=== PATIENT | male | born 1935 | race Caucasian/White ===

== ENCOUNTER → 2018-03-29 07:14 | Outpatient (CLI) | payer MEDICARE, SELFPAY ==
--- NOTE | 2018-03-29 07:19 | XR_ITS ---
XR chest 2V HISTORY: ITS.REASON: dyspnea Dyspnea ORDERING PHYSICIAN: Alexandro Whitley MD PATIENT AGE: 82 years Technique: PA and lateral chest COMPARISON: 10/22/2014 CXR FINDINGS: There is bibasilar atelectasis along with minimal basilar scarring evident. This yields Mild accentuation markings toward the bases. This is very similar previous chest film from 10/22/2014 Upper lung scott are mildly hyperexpanded and clear likely underlying mild COPD changes Heart normal size The cardiomediastinal silhouette and pulmonary vascularity are within normal limits. Calcified nodes again seen adjacent to the right bronchus granuloma disease. The lungs are clear without infiltrates, suspicious nodules, or pleural effusions. No acute bony abnormalities. IMPRESSION: Stable chest nothing definitely acute Chronic changes. . Findings are atelectasis and scarring
--- NOTE | 2018-03-29 07:19 | NM_ITS ---
History and Indications: History of OH, chest pain, abnormal EKG, Procedure: Patient received a 0.4 mg of Lexiscan, resting heart rate was 93 beats prominent, resting blood pressure 130/64, with Lexiscan maximum heart rate achieved was 78 bpm which is less than 85% of the maximum predicted heart rate and a blood pressure was 134/70. Electrocardiogram: Resting electrocardiogram showed sinus rhythm, right bundle branch block, with Lexiscan there is less than 1.[address] segment depression noted from the baseline EKG. The EKG portion of the Lexiscan Myoview is nondiagnostic. Cardiac stress and resting SPECT images: Cardiac stress and rest SPECT images were obtained using technetium 99 Myoview 30.9 mCi at stress and 10.3 mCi at rest. Gated SPECT further analysis of segmental wall motion and calculation of the ejection fraction also done. Cardiac stress and rest SPECT images show uniform myocardial activity without any segmental perfusion abnormality, computer derived ejection fraction is over 65% with no obvious regional wall motion abnormality, right ventricle is normal size and contractility. Conclusion: 1. The EKG portion of the Lexiscan Myoview is nondiagnostic. 2. No obvious scintigraphic evidence of reversible ischemia seen, computer derived ejection fraction is over 65% with no obvious regional wall motion abnormality, right ventricle is normal size and contractility. 3. Normal Lexiscan Myoview study.
--- NOTE | 2018-03-29 07:19 | CA_ITS ---
PROCEDURE: 2-D M-mode and color Doppler study INDICATIONS FOR THE TEST: Chest painx COPD Heart Murmur Tobacco Smoking Palpitations Fatiguex Syncope Edemax Hypertension Diabetes Mellitus Rheumatic Fever SOBxDOE Obesity Hyperlipidemia Family History HD Additional History CAD PATIENT INFORMATION HEIGHT: 6'4'' WEIGHT: 262 GENDER: Male B/P: 135/61 2-D/M-MODE INTERPRETATION: 2-D MEASUREMENTS OBSERVED VALUES IN CMS Right Ventricular Dimension (RVDd) 2.6 Interventricular Septum (Thickness)(IVsd) 1.1 Left Ventricular Internal Dimensions(LVIDd) 4.4 Left Ventricular Posterior Wall (Thickness)(LVPWd) 1.1 Aortic Root 3.2 Aortic Cusp Separation 1.8 Left Atrial Dimensions (LAD) 4.4 2D 1. Left atrium is mildly enlarged, left ventricle is normal size, mild concentric left ventricular hypertrophy, visually estimated ejection fraction 55% with no obvious regional wall motion abnormality. 2. The right atrium and right ventricle are normal size and contractility. 3. The aortic valve is minimally thickened and fibrosed. 4. The mitral and tricuspid valve leaflets are minimally thickened. 5. The pulmonic valve is poorly visualized. 6. No significant pericardial effusion noted. DOPPLER INTERROGATION: Doppler interrogation of the aortic, mitral and tricuspid valvular presence of trace aortic, mild mitral and tricuspid regurgitation, tricuspid regurgitant jet velocity is insufficient for calculation of the right ventricular systolic pressure, grade 1 diastolic dysfunction seen without tissue Doppler evidence of raised left atrial pressure. CONCLUSION: 1.Mildly enlarged left atrium, normal left ventricular size, mild concentric left ventricular hypertrophy, visually estimated ejection fraction 55% with no obvious regional wall motion abnormality, grade 1 diastolic dysfunction seen without tissue Doppler evidence of raised left atrial pressure. 2. Trace aortic, mild mitral and tricuspid regurgitation 3. No significant pericardial effusion noted.
--- NOTE | 2018-03-29 09:46 | HMH.ITSHM ---
cetirizine isosorbide asa hydrocodone
== END ==
PROVIDERS: Family Provider Internal Medicine; PCP Internal Medicine; Visit Provider Internal Medicine
DX: I25.118 Atherosclerotic heart disease of native coronary artery with other forms of angina pectoris (principal); R06.02 Shortness of breath; R42 Dizziness and giddiness; R94.31 Abnormal electrocardiogram [ECG] [EKG]; R00.2 Palpitations; I20.9 Angina pectoris, unspecified
CPT/HCPCS: 71046; 78452; 93017; 93306; A9502; J2785

== ENCOUNTER 2018-05-04 13:38 | Outpatient (RCR) | payer MEDICARE, OTHER, SELFPAY | END 2018-05-07 13:39 | disposition home or self-care (01) | LOC: PT 13:38 | PROVIDERS: Family Provider Internal Medicine; PCP Internal Medicine Adolescent Medicine; Visit Provider Internal Medicine Cardiovascular Disease | DX: Z95.5 Presence of coronary angioplasty implant and graft (principal); I25.10 Atherosclerotic heart disease of native coronary artery without angina pectoris; E78.5 Hyperlipidemia, unspecified | CPT/HCPCS: 93798 ==

== ENCOUNTER → 2018-08-31 10:34 | Outpatient (CLI) | payer MEDICARE, OTHER, SELFPAY ==
[2018-08-31 12:35] LABS: Alanine Aminotransferase 43 U/L (12-78); Albumin Level 3.8 gm/dL (3.4-5.0); Alkaline Phosphatase 62 U/L (46-116); Aspartate Amino Transferase 24 U/L (15-37); Bilirubin,Direct 0.1 mg/dL (0.0-0.2); Bilirubin,Indirect 0.4 mg/dL (0.0-0.9); Bilirubin,Total 0.5 mg/dL (0.2-1.0); Chol/HDL Ratio 3.9 (1-3.5); Cholesterol 140 mg/dL (140-200); HDL Cholesterol 36 mg/dL (27-67); LDL Cholesterol 79 mg/dL (0-130); Total Protein,Serum 6.9 gm/dL (6.4-8.2); Triglycerides 126 mg/dL (30-200); VLDL Cholesterol 25 mg/dL (0-40)
== END ==
PROVIDERS: Visit Provider Internal Medicine Cardiovascular Disease
DX: I25.118 Atherosclerotic heart disease of native coronary artery with other forms of angina pectoris; E78.49 Other hyperlipidemia
CPT/HCPCS: 36415; 80061; 80076

== ENCOUNTER → 2018-09-18 12:42 | Outpatient (CLI) | payer MEDICARE, OTHER, SELFPAY | PROVIDERS: Visit Provider Internal Medicine Cardiovascular Disease | DX: G47.9 Sleep disorder, unspecified (principal); R06.09 Other forms of dyspnea; R40.0 Somnolence; R53.83 Other fatigue ==

== ENCOUNTER → 2018-10-05 13:07 | Outpatient (CLI) | payer MEDICARE, OTHER, SELFPAY | PROVIDERS: PCP Internal Medicine Adolescent Medicine; Visit Provider Internal Medicine | DX: R06.09 Other forms of dyspnea; R53.83 Other fatigue; R40.0 Somnolence; G47.33 Obstructive sleep apnea (adult) (pediatric) | CPT/HCPCS: G0399 ==

== ENCOUNTER → 2019-02-21 11:00 | Outpatient (CLI) | payer MEDICARE, OTHER, SELFPAY | PROVIDERS: Internal Medicine Cardiovascular Disease; Visit Provider Urology | DX: R06.00 Dyspnea, unspecified (principal) | CPT/HCPCS: 36415; 83880 ==

== ENCOUNTER → 2019-02-26 07:42 | Outpatient (CLI) | payer MEDICARE, OTHER, SELFPAY ==
--- NOTE | 2019-02-26 07:44 | CA_ITS ---
PROCEDURE: 2-D M-mode and color Doppler study INDICATIONS FOR THE TEST: Chest pain COPD Heart Murmur Tobacco Smoking Palpitations Fatigue Syncope Edema+ Hypertension Diabetes Mellitus Rheumatic Fever SOB+BRANDT Obesity Hyperlipidemia+ Family History HD Additional History PATIENT INFORMATION HEIGHT: 76 WEIGHT: 261 GENDER: Male B/P: 136/68 2-D/M-MODE INTERPRETATION: 2-D MEASUREMENTS OBSERVED VALUES IN CMS Right Ventricular Dimension (RVDd) 2.6 Interventricular Septum (Thickness)(IVsd) 1.1 Left Ventricular Internal Dimensions(LVIDd) 3.4 Left Ventricular Posterior Wall (Thickness)(LVPWd) 1.0 Aortic Root 3.2 Aortic Cusp Separation 2.1 Left Atrial Dimensions (LAD) 5.0 2D 1. Left atrium is mildly enlarged, left ventricle is normal size, mild concentric left ventricular hypertrophy, visually estimated ejection fraction 55% with no regional wall motion abnormality. 2. The right atrium and right ventricle are normal size and contractility. 3. The aortic valve is minimally thickened and fibrosed. 4. The mitral and tricuspid valvular grossly normal. 5. The pulmonic valve is poorly present. 6. No significant pericardial effusion noted. DOPPLER INTERROGATION: Doppler interrogation of the aortic, mitral and tricuspid valvular presence of mild aortic, mild mitral and tricuspid regurgitation, tricuspid regurgitation jet velocity is inadequate for calculation of the right ventricular systolic pressure, grade 1 diastolic dysfunction seen without tissue Doppler evidence of raised left atrial pressure. CONCLUSION: 1. Mildly enlarged left atrium, normal left ventricular size, mild concentric left ventricular hypertrophy, visually estimated ejection fraction 55% with no regional wall motion abnormality, grade 1 diastolic dysfunction seen without tissue Doppler evidence of raised left atrial pressure. 2. Mild aortic, mild mitral and tricuspid regurgitation 3. No significant pericardial effusion noted.
== END ==
PROVIDERS: PCP Internal Medicine Adolescent Medicine; Visit Provider Internal Medicine Cardiovascular Disease
DX: I10 Essential (primary) hypertension; I25.10 Atherosclerotic heart disease of native coronary artery without angina pectoris; M79.606 Pain in leg, unspecified; R06.00 Dyspnea, unspecified; R60.9 Edema, unspecified; E78.49 Other hyperlipidemia
CPT/HCPCS: 93306

== ENCOUNTER → 2019-03-07 11:51 | Outpatient (CLI) | payer MEDICARE, OTHER, SELFPAY ==
[2019-03-07 14:50] LABS: Anion Gap 14.7 mEq/L (5-15); Blood Urea Nitrogen 15 mg/dL (7-18); Calcium 8.9 mg/dL (8.5-10.1); Carbon Dioxide 28 mmol/L (21.0-32.0); Chloride 102 mmol/L (98-107); Creatinine,Serum 1.12 mg/dL (0.70-1.30); Estimated Glomerular Filt Rate 63 ml/min (>60); GFR (African American) 76 ML/MIN (>60); Glucose 89 mg/dL (74-106); Potassium 4.7 mmoL/L (3.5-5.1); Sodium 140 mmol/L (136-145)
== END ==
PROVIDERS: Visit Provider Internal Medicine Cardiovascular Disease
DX: E78.5 Hyperlipidemia, unspecified (principal); I25.10 Atherosclerotic heart disease of native coronary artery without angina pectoris; R60.9 Edema, unspecified
CPT/HCPCS: 36415; 80048

== ENCOUNTER 2019-03-13 08:00 | Outpatient (RCR) | payer MEDICARE, OTHER, SELFPAY ==
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
== END 2019-03-13 08:05 | disposition home or self-care (01) ==
LOC: PT 08:00
PROVIDERS: Visit Provider Internal Medicine Adolescent Medicine
DX: I89.0 Lymphedema, not elsewhere classified (principal)
CPT/HCPCS: 97140; 97162; 97760

== ENCOUNTER → 2019-07-04 10:11 | Outpatient (CLI) | payer MEDICARE, OTHER, SELFPAY | PROVIDERS: Visit Provider Internal Medicine Adolescent Medicine | DX: S91.002A Unspecified open wound, left ankle, initial encounter (principal); B95.62 Methicillin resistant Staphylococcus aureus infection as the cause of diseases classified elsewhere | CPT/HCPCS: 87070; 87077; 87186; 87205 ==

== ENCOUNTER → 2019-07-05 10:04 | Outpatient (CLI) | payer MEDICARE, OTHER, SELFPAY ==
--- NOTE | 2019-07-05 10:06 | MR_ITS ---
PROCEDURE: MR ANKLE LT WO CON CLINICAL INDICATION: ULCER OF LEFT LOWER EXTREMITY, CELLULITIS OF LEFT LEG Severe ankle pain laterally with swelling COMPARISON: Ankle L from 02/13/2019 TECHNIQUE: Routine multiplanar multi echo sequences are performed without gadolinium enhancement. FINDINGS: There is fairly extensive soft tissue swelling with subcutaneous edema along the ankle medially and laterally and along the dorsal aspect of the foot. No obvious fracture or bone bruise. No abnormal bone marrow edema evident or bony destructive process that would indicate osteomyelitis. No abscess or localized fluid collections. The ligaments and tendons about the ankle have an unremarkable appearance. IMPRESSION: 1. No evidence of osteomyelitis or abscess. 2. Generalized subcutaneous soft tissue swelling Dictated by: Karlos Deal MD 07/06/2019 11:49 Electronically signed by Karlos Deal MD in [place] 07/06/2019 11:49
== END ==
PROVIDERS: PCP Internal Medicine Adolescent Medicine; Visit Provider Internal Medicine Adolescent Medicine
DX: L03.116 Cellulitis of left lower limb (principal); L97.921 Non-pressure chronic ulcer of unspecified part of left lower leg limited to breakdown of skin
CPT/HCPCS: 73721

== ENCOUNTER 2019-07-15 09:30 | Outpatient (RCR) | payer MEDICARE, OTHER, SELFPAY ==
--- NOTE | 2019-07-04 09:25 | HMH.PTOPWND ---
Rehab Outpt Wound Evaluation Rehab OP Wound Evaluation Start: 07/04/19 08:32 Freq: Status: Active Protocol: Document 07/04/19 09:06 [email or web address] (Rec: 07/04/19 09:24 PHORJOSH [id number]) Electronically Signed By Keenan Hathaway, PT 07/04/19 09:06 Subjective/History History History Pt is 83 yowm who presents with c/o chronic left lateral ankle wound x ~ 5 mos with insidious onset. He has been treated at this clinic previously for edema control and wound care, then care transfered to the [facility] [place]. He reports little improvement in several mos, but states It does look a little better today, but I don 't know why. 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 He also has hx of CAD with AK and stent, HTN, HL, and kidney stones. Subjective Subjective Pt reports minimal tenderness to gera-wound area, but increased pain throughout the left foot and ankle. 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 Wound Length (cm) 1.9 Wound Width (cm) 2.5 Wound Bed Appearance Beefy Red,Walton Percentage Granulated (%) 100 Wound Margins Description Well Defined Surrounding Tissue Appearance Walton Edema Type Pitting Edema Degree 2+ Query Text:1+ Trace, Barely Detectable, Rebound 15-30 seconds 2+ Moderate, Slight Indentation, Rebound 10-20 seconds 3+ Deep, Deeper Indentation, Rebound > 30 seconds 4+ Very Deep, Rebound > 60 seconds Edema Appearance Shiny Drainage Description Serous Drainage Amount Moderate Drainage Odor No Odor Primary Dressing collagen Comment puracol Wound Secondary Dressing Type Composite Comment optifoam thin with border Wound Debridement Method Gauze Wound Debridement Amount of Tissue Minimal Removed Dressing Change Patient Tolerance Tolerated Well Wound Problems/Impairments Impairments Prob
== END 2019-07-15 09:35 | disposition home or self-care (01) ==
LOC: PT 09:30
PROVIDERS: Visit Provider Internal Medicine Adolescent Medicine
DX: L03.116 Cellulitis of left lower limb (principal)
CPT/HCPCS: 97162; 97597

== ENCOUNTER 2020-05-18 20:25 | Emergency (ER) | payer MEDICARE, OTHER, SELFPAY ==
[2020-05-18 20:10] VITALS: BP 120/45; PULSE 55; RESP 16; O2SAT 95; BMI 34.2
--- NOTE | 2020-05-18 20:14 | HMH.EDGENADL ---
ED Disposition Clinical Impression: Gastroenteritis Disposition: Home, Self-Care Condition on Discharge: Good Instructions: DI for Diarrhea and Traveler's Diarrhea -- Adult, DI for Diarrhea and Traveler's Diarrhea -- Child, DI for Nausea -- Adult, DI for Nausea -- Child, Nausea and Vomiting-Adult Prescriptions: Ondansetron [Zofran 4mg ODT] 4 mg PO Q4-6H PRN #10 tab.rapdis PRN Reason: Nausea Prescription Printed Referrals: PCP,No [Primary Care Provider] - - Critical Care Critical Care Time: No Attestation: On , the high probability of a clinically significant, sudden or life threatening deterioration of the following system(s) required my full and direct attention, intervention and personal management. The time I documented below is in addition to time spent performing reported procedures but includes the following listed in this critical care notation. Medical Decision Making - Herbert Inquiry Pt receiving controlled substance: No Vital Signs: 05/18/20 20:10 05/18/20 21:10 05/18/20 22:11 Pulse Rate [Left Radial] 55 L 61 66 Respiratory Rate 16 16 16 Blood Pressure [Right Arm] 120/45 L 128/51 L 136/58 L Blood Pressure Mean [Right Arm] 70 76 84 Blood Pressure Source [Right Arm] Automatic Cuff Automatic Cuff Automatic Cuff Blood Pressure Position [Right Arm] Sitting Sitting 02 Sat by Pulse Oximetry 95 98 97 Oxygen Delivery Method Room Air Room Air Room Air 05/18/20 23:09 Pulse Rate [Left Radial] 68 Respiratory Rate 16 Blood Pressure [Right Arm] 147/67 H Blood Pressure Mean [Right Arm] 93 Blood Pressure Source [Right Arm] Automatic Cuff Blood Pressure Position [Right Arm] Sitting 02 Sat by Pulse Oximetry 96 Oxygen Delivery Method Room Air - Lab Data Lab Results 05/18/20 20:00: WBC 6.0, RBC 5.09, Hgb 16.1, Hct 46.1, MCV 90.5, MCH 31.6 H, MCHC 34.9, RDW 13.8, Plt Count 248, MPV 7.2 L, Neut % (Auto) 59.1, Lymph % (Auto) 26.9, [place] % (Auto) 8.3, Eos % (Auto) 5.2, Baso % (Auto) 0.4, Neut # (Auto) 3.6, Lymph # (Auto) 1.6, [place] # (Auto) 0.5, Eos # (Auto) 0.3, Baso # (Auto) 0.0 05/18/20 20:00: Sodium 139, Potassium 3.8, Chloride 105, Carbon Dioxide 22, Anion Gap 15.8 H, BUN 21 H, Creatinine 0.90, Estimated Creat Clear 95, Estimated GFR 81, Est GFR ( Amer) 98, Glucose 153 H, Calcium 9.4, Total Bilirubin 0.4, AST 33, ALT 32, Alkaline Phosphatase 55, Troponin I < 0.01, Total Protein 7.2, Albumin 4.1, Globulin 3.1, Albumin/Globulin Ratio 1.3 05/18/20 20:00: Magnesium 2.1 05/18/20 22:38: Troponin I < 0.01 Result diagrams: 05/18/20 20:00 05/18/20 20:00 Orders (Tests/Meds): ED MEDICATIONS Generic Name Dose Route Start Last Admin Trade Name Freq PRN Reason Stop Dose Admin Lactated Ringer's 1,000 mls @ 999 mls/hr 05/18/20 21:00 05/18/20 21:03 Lactated Ringer's 1000 Ml Bag IV 05/18/20 22:00 999 mls/hr .Q1H1M [id number] Administration ORDERS Category Date Time Status XR chest portable Stat Exams 05/18/20 20:21 Taken Troponin I Q3H Lab 05/19/20 02:30 Ordered Medical Decision Narrative: Patient presents for abdominal pain, vomiting, diarrhea. Symptom onset was an hour after eating cottage cheese. Likely has enteritis versus gastroenteritis. Patient was given Zofran by EMS, patient given 1 L bolus of lactated Ringer's here. Labs were obtained including EKG. At this point, the exact cause of the patient's current symptom complex is unknown. Initial EKG is nondiagnostic and initial delta troponin testing protocols are within normal limits. At the present time, I doubt pulmonary embolus secondary to the lack of tachycardia, tachypnea, or hypoxia. . Similarly, I doubt aortic dissection or abdominal aortic aneurysm secondary to history and description of pain, the patient's nonfocal vascular examination in all four extremities, and CXR unremarkable for signs of mediastinal widening. Doubt pneumothorax given good bilateral breath sounds and chest X ray with good lung markings out to the gera
--- NOTE | 2020-05-18 20:16 | ECG_ITS ---
APPROVED REPORT Exam: Resting ECG HR:58 bpm ECG Measurements Heart Rate 58 AXES [place] 172 P 58 QRSd 130 QRS -24 QT 522 T 9 QTc 512 <Conclusion> Sinus bradycardia Right bundle branch block Moderate voltage criteria for LVH, may be normal variant Abnormal ECG Electronically signed by : Nick Galan, 05/20/2020 06:25:04
--- NOTE | 2020-05-18 20:21 | XR_ITS ---
PROCEDURE: XR CHEST PORTABLE CLINICAL HISTORY: n/v/d Generalized weakness COMPARISON: No exams were available for comparison FINDINGS: The cardiomediastinal silhouette and pulmonary vascularity are within normal limits. Atelectasis or infiltrate is present in the right lung base. Changes of COPD. Mild atelectasis left lung base. Degenerative changes shoulders IMPRESSION: Right basilar atelectasis and/or infiltrate Dictated by: Karlos Deal MD 05/19/2020 04:35 Karlos Deal MD in [place] 05/19/2020 04:35
[2020-05-18 20:31] LABS: Basophils % 0.4 % (0.1-2.0); Chloride 105 mmol/L (98-107); Eosinophils # 0.3 K/mm3 (0.0-0.4); Eosinophils % 5.2 % (0.1-12.0); Hematocrit 46.1 % (42.0-52.0); Hemoglobin 16.1 g/dL (14.1-18.0); Lymphocytes # 1.6 K/mm3 (0.7-4.5); Lymphocytes % 26.9 % (10-50); Mean Corpuscular HGB Conc 34.9 g/dL (31.8-35.4); Mean Corpuscular Hemoglobin 31.6 pg (27.0-31.2); Mean Corpuscular Volume 90.5 fl (80-94); Mean Platelet Volume 7.2 fl (7.4-10.4); Monocytes # 0.5 K/mm3 (0.1-1.0); Monocytes % 8.3 % (1.7-9.3); Neutrophils # 3.6 K/mm3 (1.8-7.8); Neutrophils % 59.1 % (37.0-80.0); Platelet Count 248 K/mm3 (142-424); Potassium 3.8 mmoL/L (3.5-5.1); Red Blood Count 5.09 M/mm3 (4.60-6.20); Red Cell Distribution Width 13.8 % (11.5-17.5); Sodium 139 mmol/L (136-145)
--- NOTE | 2020-05-18 20:31 | PC.NURSE ---
back form RAD
--- NOTE | 2020-05-18 20:32 | PC.NURSE ---
pt to RAD for Chest XRay
[2020-05-18 20:34] LABS: Albumin Level 4.1 g/dl (3.5-5.0); Albumin/Globulin Ratio 1.3 (1.1-1.8); Alkaline Phosphatase 55 U/L (38-126); Anion Gap 15.8 mEq/L (5-15); Bilirubin,Total 0.4 mg/dl (0.2-1.3); Blood Urea Nitrogen 21 mg/dl (9-20); Calcium 9.4 mg/dl (8.4-10.2); Carbon Dioxide 22 mmol/L (22.0-30.0); Creatinine Clearance Estimated 95 mL/min (50-200); Estimated Glomerular Filt Rate 81 ml/min (>60); GFR (African American) 98 ML/MIN (>60); Globulin 3.1 g/dL (1.3-3.2); Glucose 153 mg/dl (74-100); Magnesium 2.1 mg/dl (1.6-2.3); Total Protein,Serum 7.2 g/dl (6.3-8.2)
[2020-05-18 20:35] LABS: Alanine Aminotransferase 32 U/L (12-78); Aspartate Amino Transferase 33 U/L (17-59)
[2020-05-18 20:50] LABS: Troponin I < 0.01 ng/ml (0.00-0.034)
[2020-05-18 21:10] VITALS: BP 128/51; PULSE 61; RESP 16; O2SAT 98
[2020-05-18 22:11] VITALS: BP 136/58; PULSE 66; RESP 16; O2SAT 97
[2020-05-18 23:09] VITALS: BP 147/67; PULSE 68; RESP 16; O2SAT 96
[2020-05-18 23:09] LABS: Troponin I < 0.01 ng/ml (0.00-0.034)
[2020-05-19] VITALS: BP 140/93; PULSE 64; RESP 16; O2SAT 94
[2020-05-19 00:45] VITALS: BP 126/64; PULSE 67; RESP 16; TEMP 36.7; O2SAT 95
== END 2020-05-19 00:49 | disposition home or self-care (01) ==
PROVIDERS: Emergency Provider Emergency Medicine
DX: K52.9 Noninfective gastroenteritis and colitis, unspecified (principal); E78.5 Hyperlipidemia, unspecified; I10 Essential (primary) hypertension; I25.10 Atherosclerotic heart disease of native coronary artery without angina pectoris; I25.2 Old myocardial infarction; Z87.442 Personal history of urinary calculi; Z88.8 Allergy status to other drugs, medicaments and biological substances
CPT/HCPCS: 71045; 80053; 83735; 84484; 85025; 93005; 96365; 99283; 99284

== ENCOUNTER 2023-06-08 11:47 | Emergency (ER) | payer MEDICARE, OTHER, SELFPAY ==
[2023-06-08] VITALS (8 sets, daily range): BP systolic 104–127; BP diastolic 54–70; PULSE 54–72; RESP 13–23; TEMP 36.5–36.6; O2SAT 91–95; BMI 32.2
--- NOTE | 2023-06-08 11:48 | ECG_ITS ---
APPROVED REPORT Exam: Resting ECG HR:72 bpm ECG Measurements Heart Rate 72 AXES [place] 162 P 51 QRSd 128 QRS -70 QT 421 T 50 QTc 445 Conclusion SINUS RHYTHM POSSIBLE RIGHT VENTRICULAR CONDUCTION DELAY [RSR (QR) IN V1/V2] LEFT ANTERIOR FASCICULAR BLOCK [QRS AXIS <= -45, QR IN I, RS IN II] POSSIBLE LATERAL MYOCARDIAL INFARCTION , OF INDETERMINATE AGE [30 ms Q WAVE IN I/aVL/V5/V6] ABNORMAL ECG UNCONFIRMED REPORT Electronically signed by : Nick Galan MD 06/08/2023 17:16:15
--- NOTE | 2023-06-08 12:01 | PC.NURSE ---
Dr. Coley at [facility] for pt eval
--- NOTE | 2023-06-08 12:04 | XR_ITS ---
FINAL REPORT CLINICAL HISTORY: CP/SOA COMPARISON: None FINDINGS: A portable view of the chest was obtained. Cardiac and mediastinal silhouettes are within normal limits. There are diminished lung volumes bilaterally with bibasilar opacities, favor atelectasis. There is no pleural effusion or pneumothorax. IMPRESSION: Diminished lung volumes bilaterally with bibasilar opacities, favor atelectasis. Reviewed, Interpreted and Dictated by Helena Bergeron MD Transcribed by Rebecca Garcia Authenticated and [facility]
--- NOTE | 2023-06-08 12:05 | CA_ITS ---
FINAL REPORT CLINICAL HISTORY: limb swelling, Hx-DVT FINDINGS: DUPLEX VENOUS SONOGRAPHY OF THE RIGHT LOWER EXTREMITY Multiple transverse and longitudinal scans were performed of the femoropopliteal deep venous system, with augmentation and compression maneuvers. HISTORY: Pain FINDINGS: Normal phasic flow was noted in the visualized deep venous system. No intraluminal increased echogenicity is noted to suggest thrombus. There is normal compression and augmentation of the venous structures. No abnormal venous collaterals are seen. IMPRESSION: No evidence of deep venous thrombosis of the right lower extremity. Reviewed, Interpreted and Dictated by Helena Bergeron MD Transcribed by Evelia Torres Authenticated and [facility]
--- NOTE | 2023-06-08 12:13 | PC.NURSE ---
XR AT BEDSIDE
--- NOTE | 2023-06-08 12:15 | HMH.EDGENADL ---
Discharge Plan Disposition Patient Disposition: Home, Self-Care Condition: Good Prescriptions Prescriptions: New doxycycline hyclate 100 mg capsule 100 mg PO BID 14 Days Qty: 28 0RF No Action cetirizine 10 mg tablet 10 mg PO DAILY cholecalciferol (vitamin D3) 1,000 unit capsule 2,000 unit PO DAILY diphenhydramine HCl [Benadryl] 25 mg capsule 25 mg PO QHS PRN (Reason: Sleep) metoprolol succinate 50 mg tablet extended release 24 hr 25 mg PO DAILY isosorbide mononitrate 60 mg tablet extended release 24 hr 30 mg PO DAILY clopidogrel 75 MG tablet 75 mg PO QDAY atorvastatin 40 MG tablet 40 mg PO DAILY ondansetron 4 MG tablet,disintegrating 4 mg PO Q4-6H PRN (Reason: Nausea) Qty: 10 0RF Referrals Follow up/Referrals: Provider,Referral, MD [Primary Care Provider] - See instructions Activity Restrictions/Add. Instructions Additional Instructions/Restrictions: You were evaluated in the emergency department today. 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 Return to the emergency department for any new or worsening symptoms. Clinical Impressions Clinical Impression: Pneumonia, Chest pain Instructions Patient Instructions: DI for Pneumonia -- Adult, DI for Atypical Chest Pain Discharge ED Provider: Grace Coley General Adult HPI General Chief complaint: Chest Pain Stated complaint: CHEST PAIN Time Seen by Provider: 06/08/23 11:58 Mode of Arrival: Wheelchair Source of Information: Patient Limitations: No Limitations Description of Symptoms (Recalled from ER Triage Doc. by RN): pt to ed c/o chest pressure. 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 pt reports a hx of cardiac stents. pt denies cp or soa. pt denies nausea. History of Present Illness HPI narrative: This patient is an 87-year-old male with a history of CAD status post stenting on aspirin and Plavix, hypertension, hyperlipidemia, and venous insufficiency presented to the emergency department for evaluation with concern for chest heaviness and overall fatigue. Patient reports that when he woke up this morning, he thinks that he was feeling okay, but when he went to eat breakfast he started feeling very fatigued and experiencing a lot of chest pressure and heaviness. He states that overall, he is just not feeling well. He denies any recent fevers, chills, cough, congestion, abdominal pain, nausea, vomiting, changes bowel movements, or new rashes or swelling. He reports compliance with his medications. He was well yesterday when he went to bed. Related Data Home Medications Medication Instructions Recorded Confirmed cetirizine 10 mg tablet 10 mg PO DAILY allergies 03/19/18 03/05/20 cholecalciferol (vitamin D3) 25 2,000 unit PO DAILY Supplement 03/19/18 03/05/20 mcg (1,000 unit) capsule diphenhydramine HCl 25 mg capsule 25 mg PO QHS PRN Sleep 03/19/18 03/05/20 (Benadryl) atorvastatin 40 mg tablet 40 mg PO DAILY Cholesterol 04/16/18 03/05/20 metoprolol succinate 50 mg 25 mg PO DAILY bp 05/18/18 03/05/20 tablet,extended release 24 hr clopidogrel 75 mg tablet 75 mg PO QDAY Blood thinner 10/31/18 03/05/20 isosorbide mononitrate 60 mg 30 mg PO DAILY 10/18/19 03/05/20 tablet,extended release 24 hr Previous Rx's Medication Instructions Recorded ondansetron 4 mg disintegrating 4 mg PO Q4-6H PRN Nausea ##10 05/18/20 tablet doxycycline hyclate 100 mg capsule 100 mg PO BID 14 days #28 caps 06/08/23 Allergies Allergy/AdvReac Type Severity Reaction Status Date / Time gabapentin Allergy Unknown Verified 03/05/20 11:15 allergy reaction nortriptyline Allergy Unknown Verified 03/05/20 11:15 allergy reaction [facility] Disclaimer: The information contained in this section may have been updated a
[2023-06-08 12:19] LABS: Alanine Aminotransferase 27 U/L (12-78); Alkaline Phosphatase 54 U/L (38-126); Aspartate Amino Transferase 31 U/L (17-59); Bilirubin,Total 0.7 mg/dl (0.2-1.3); Blood Urea Nitrogen 15 mg/dl (9-20); Carbon Dioxide 24 mmol/L (22.0-30.0); Creatinine Clearance Estimated 92 mL/min (50-200); Estimated Glomerular Filt Rate 71 ml/min (>60); GFR (African American) 86 ML/MIN (>60)
[2023-06-08 12:31] LABS: NT Pro Brain Natriuretic Pep. 120 pg/mL (0-450)
[2023-06-08 12:33] LABS: Troponin I < 0.01 ng/ml (0.00-0.034)
[2023-06-08 12:34] LABS: Albumin Level 4.1 g/dl (3.5-5.0); Albumin/Globulin Ratio 1.6 (1.1-1.8); Basophils % 0.3 % (0.1-2.0); Chloride 104 mmol/L (98-107); Eosinophils # 0.2 K/mm3 (0.0-0.4); Eosinophils % 2.8 % (0.1-12.0); Globulin 2.5 g/dL (1.3-3.2); Glucose 166 mg/dl (74-100); Hemoglobin 13.2 g/dL (14.1-18.0); Lipase 30 U/L (23-300); Lymphocytes # 1.1 K/mm3 (0.7-4.5); Lymphocytes % 17.7 % (10-50); Mean Corpuscular HGB Conc 30.1 g/dL (31.8-35.4); Mean Corpuscular Hemoglobin 22.7 pg (27.0-31.2); Mean Corpuscular Volume 75.7 fl (80-94); Mean Platelet Volume 7.9 fl (7.4-10.4); Monocytes # 0.4 K/mm3 (0.1-1.0); Monocytes % 5.6 % (1.7-9.3); Neutrophils # 4.7 K/mm3 (1.8-7.8); Neutrophils % 73.6 % (37.0-80.0); Platelet Count 259 K/mm3 (142-424); Red Blood Count 5.82 M/mm3 (4.60-6.20); Red Cell Distribution Width 20.7 % (11.5-17.5); Sodium 140 mmol/L (136-145); Total Protein,Serum 6.6 g/dl (6.3-8.2); White Blood Count 6.4 K/mm3 (4.8-10.8)
[2023-06-08 12:39] LABS: D-Dimer 1.42 ug/mL (0.0-0.5)
--- NOTE | 2023-06-08 12:45 | CT_ITS ---
FINAL REPORT TECHNIQUE: Axial imaging of the chest is obtained after the administration of contrast. 3-D MIP reformatted images were also obtained and reviewed per PE protocol. CLINICAL HISTORY: CP, elevated dimer COMPARISON: None FINDINGS: The pulmonary arteries are well filled. There is no evidence of pulmonary embolus. There is no aortic dissection or intimal flap. There is an enlarged right infrahilar node, 2 cm in size. There is also a subcarinal node measuring 2.5 cm in size. There are ground glass and airspace opacities more prominent in the right lower lobe than the left lower lobe that may represent pneumonia. Changes of emphysema are present. . There is no pleural or pericardial effusion. There are nonobstructing bilateral renal stones, and hypodense left renal lesion likely cyst.. No acute osseous abnormality. IMPRESSION: No evidence of pulmonary embolism or aortic dissection. Ground glass and airspace opacities in the lower lobes more prominent on the right side, that may represent pneumonia. Enlarged right infrahilar and subcarinal nodes, likely reactive. Reviewed, Interpreted and Dictated by Helena Bergeron MD Transcribed by Rebecca Garcia Authenticated and [facility]
[2023-06-08 12:49] LABS: Coronavirus 19, PCR Not Detected (NotDetected); Influenza A, PCR Not Detected (NotDetected); Influenza B, PCR Not Detected (NotDetected)
--- NOTE | 2023-06-08 12:50 | PC.NURSE ---
TRESTLEMAN AT BEDSIDE FOR DOPPLER OF LEG
--- NOTE | 2023-06-08 13:00 | PC.NURSE ---
PT TO CT
--- NOTE | 2023-06-08 13:11 | PC.NURSE ---
PT RETURNED FROM CT
--- NOTE | 2023-06-08 14:24 | PC.NURSE ---
REPEAT TROP SENT TO LAB
[2023-06-08 15:55] LABS: Troponin I < 0.01 ng/ml (0.00-0.034)
--- NOTE | 2023-06-08 16:00 | PC.NURSE ---
DR BECKER AT BEDSIDE TO UPDATE PT
== END 2023-06-08 16:09 | disposition home or self-care (01) ==
PROVIDERS: Emergency Provider Emergency Medicine
DX: R07.9 Chest pain, unspecified (principal); J18.9 Pneumonia, unspecified organism; I25.10 Atherosclerotic heart disease of native coronary artery without angina pectoris; I10 Essential (primary) hypertension; E78.5 Hyperlipidemia, unspecified; Z79.02 Long term (current) use of antithrombotics/antiplatelets; Z79.82 Long term (current) use of aspirin; I45.9 Conduction disorder, unspecified
CPT/HCPCS: 71045; 71275; 80053; 83690; 83880; 84484; 85025; 85378; 87636; 93005; 93971; 99285; Q9967